=== PATIENT | female | born 1990 | race Caucasian/White ===

== ENCOUNTER 2025-01-11 16:41 | Observation (INO) | payer OTHER, SELFPAY ==
[2025-01-11 16:50] VITALS: BP 141/89; BMI 31.0
[2025-01-11 17:38] LABS: Hematocrit 35.9 % (37.0-47.0); Hemoglobin 12.7 g/dL (12.0-16.0); Mean Corp Hgb Conc. 35.4 g/dL (33.0-37.0); Mean Corpuscular Hgb 32.2 pg (27.0-31.0); Mean Corpuscular Volume 90.9 fL (81.0-99.0); Mean Platelet Volume 11.3 fL (7.4-10.4); Platelet Count 218 10^3/uL (130-400); Red Blood Cell Count 3.95 10^6/uL (4.20-5.40); Red Cell Dist. Width 12.1 % (11.5-14.5); White Blood Cell Count 9.4 10^3/uL (4.8-10.8)
[2025-01-11 17:42] LABS: Urine Albumin 1+ (Neg - Trace); Urine Bilirubin Negative (Negative); Urine Character Clear (Clear); Urine Color Yellow; Urine Glucose Negative (Negative); Urine Ketone 3+ (Negative); Urine Leukocyte Negative (Negative); Urine Nitrite Negative (Negative); Urine Occult Blood 3+ (Negative); Urine Specific Gravity 1.025 (<1.030); Urine Urobilinogen Negative (Neg - 1+)
[2025-01-11 17:49] LABS: Urine Calcium Oxalate Crystals Present
[2025-01-11 17:50] LABS: Urine Bacteria Many (Negative); Urine Red Blood Cell 16-20 /HPF (0-2); Urine White Cell 0-2 /HPF (0-5)
[2025-01-11 17:55] LABS: ALT (SGPT) 28 U/L (0-35); AST (SGOT) 27 U/L (14-36); Albumin 3.7 g/dl (3.5-5.0); Alkaline Phosphatase 147 U/L (38-126); Blood Urea Nitrogen 10 mg/dl (7-17); Calcium 9.8 mg/dl (8.4-10.2); Carbon Dioxide 22 mmol/L (22-30); Chloride 110 mmol/L (98-107); Estimated Creatinine Clearance > 125 ml/min; Glucose 82 mg/dl (70-99); Potassium 4.1 mmol/L (3.5-5.1); Sodium 135 mmol/L (135-145); Total Bilirubin 0.4 mg/dl (0.2-1.3); Total Protein 6.5 g/dl (6.3-8.2); eGFR > 60.00
[2025-01-11 18:18] LABS: Urine Protein 10 mg/dl
== END 2025-01-11 19:12 | disposition home or self-care (01) ==
LOC: LDRP 16:41
PROVIDERS: ADMITTING PHYSICIAN Obstetrics & Gynecology
DX: O26.893 Other specified pregnancy related conditions, third trimester (principal); R03.0 Elevated blood-pressure reading, without diagnosis of hypertension; Z3A.37 37 weeks gestation of pregnancy
CPT/HCPCS: 80053; 81003; 81015; 82570; 84156; 85027; 86850; 86900; 86901; 87086; G0378

== ENCOUNTER 2025-01-13 13:42 | Inpatient (IN) | payer OTHER, SELFPAY ==
[2025-01-13 14:23] VITALS: BP 135/86; BMI 31.0
[2025-01-13 14:58] LABS: % Basophils 0.2 % (0-2); % Eosinophils 0.2 % (0-6); % Immature Granulocytes 0.3 % (0-0.5); % Lymphocytes 15.3 % (20.5-51.1); % Monocytes 6.8 % (1.7-9.3); % Neutrophils 77.2 % (42.2-75.2); Absolute Lymphocytes 1.4 10^3/uL (1.2-3.4); Absolute Monocytes 0.6 10^3/uL (0.1-0.6); Hematocrit 36.2 % (37.0-47.0); Hemoglobin 12.8 g/dL (12.0-16.0); Mean Corp Hgb Conc. 35.4 g/dL (33.0-37.0); Mean Corpuscular Hgb 32.2 pg (27.0-31.0); Mean Corpuscular Volume 91.2 fL (81.0-99.0); Mean Platelet Volume 11.5 fL (7.4-10.4); Nucleated Red Blood Cells % 0 %; Platelet Count 216 10^3/uL (130-400); Red Blood Cell Count 3.97 10^6/uL (4.20-5.40); Red Cell Dist. Width 12.1 % (11.5-14.5); White Blood Cell Count 9.1 10^3/uL (4.8-10.8)
[2025-01-13 15:19] LABS: ALT (SGPT) 28 U/L (0-35); AST (SGOT) 28 U/L (14-36); Albumin 3.9 g/dl (3.5-5.0); Alkaline Phosphatase 151 U/L (38-126); Blood Urea Nitrogen 11 mg/dl (7-17); Calcium 9.8 mg/dl (8.4-10.2); Carbon Dioxide 21 mmol/L (22-30); Chloride 106 mmol/L (98-107); Estimated Creatinine Clearance > 125 ml/min; Glucose 78 mg/dl (70-99); Potassium 4.2 mmol/L (3.5-5.1); Sodium 132 mmol/L (135-145); Total Bilirubin 0.5 mg/dl (0.2-1.3); Total Protein 6.6 g/dl (6.3-8.2); eGFR > 60.00
[2025-01-13 15:20] LABS: Protein/creatinine Ratio 0.1; Urine Protein 15 mg/dl
[2025-01-13] MEDS: CYTOTEC 25 MICROGRAM VAG (19:16)
[2025-01-14] MEDS: CYTOTEC 50 MICROGRAM PO ×4 (00:43→22:40)
[2025-01-14] MEDS: VALTREX 500 MG PO ×3 (00:44→20:13)
[2025-01-14] MEDS: CYTOTEC PO ×2 (01:20→05:06)
[2025-01-14] MEDS: LR 1000 IV ×2 (02:57→04:22)
[2025-01-14] MEDS: PRENATAL PLUS 1 TABLET PO (08:28)
[2025-01-15] MEDS: PITOCIN 30 UNITS/NSS 500 ML IV (02:44)
[2025-01-15] MEDS: LR 1000 IV ×2 (02:44→05:46)
[2025-01-15] MEDS: PRENATAL PLUS 1 TABLET PO (07:11)
[2025-01-15] MEDS: VALTREX 500 MG PO (07:11)
[2025-01-15] MEDS: FENTANYL/BUPIVACAINE 100 EPIDURAL (08:33)
[2025-01-15] MEDS: SUBLIMAZE 100 MCG EPIDURAL (08:33)
[2025-01-16 05:22] LABS: Hematocrit 31.5 % (37.0-47.0); Hemoglobin 11.1 g/dL (12.0-16.0)
[2025-01-16] MEDS: PRENATAL PLUS 1 TABLET PO (13:52)
[2025-01-17] MEDS: PRENATAL PLUS 1 TABLET PO (07:49)
[2025-01-17] MEDS: SENOKOT-S 1 TABLET PO (07:49)
--- NOTE | 2025-01-17 15:52 | CM ---
CM reviewed chart, attempted to see mother bedside to complete initial assessment/offer resources- consult received for score. Per nurse, Physician has not spoken with mother yet, mother currently having photos taken, CM will
return at a later time.
CM returned to floor, mother leaving floor for discharge.
Plan; home no needs.
[2025-01-18 13:34] LABS: Syphilis/T. pallidum Ab Reflex Negative (Negative)
== END 2025-01-17 13:50 | disposition home or self-care (01) | DRG 807 ==
LOC: LDRP 13:42
PROVIDERS: Obstetrics & Gynecology; Student in an Organized Health Care Education/Training Program; ADMITTING PHYSICIAN Obstetrics & Gynecology; FAMILY PHYSICIAN Obstetrics & Gynecology
PROC: 3E0P7VZ Introduction of Hormone into Female Reproductive, Via Natural or Artificial Opening (ICD-10-PCS; 2025-01-13)
PROC: 0U7C7DJ Dilation of Cervix with Intraluminal Device, Temporary, Via Natural or Artificial Opening (ICD-10-PCS; 2025-01-14)
PROC: 3E033VJ Introduction of Other Hormone into Peripheral Vein, Percutaneous Approach (ICD-10-PCS; 2025-01-14)
PROC: 10E0XZZ Delivery of Products of Conception, External Approach (ICD-10-PCS; 2025-01-15)
PROC: 0HQ9XZZ Repair Perineum Skin, External Approach (ICD-10-PCS; 2025-01-15)
DX: O13.4 Gestational [pregnancy-induced] hypertension without significant proteinuria, complicating childbirth (principal); Z37.0 Single live birth; Z3A.37 37 weeks gestation of pregnancy; O70.0 First degree perineal laceration during delivery; O69.81X0 Labor and delivery complicated by cord around neck, without compression, not applicable or unspecified; O76 Abnormality in fetal heart rate and rhythm complicating labor and delivery
CPT/HCPCS: 88307; 80053; 82570; 84156; 85014; 85018; 85025; 86780; 86850; 86900; 86901